=== PATIENT | male | born 1955 | race Caucasian/White ===

== ENCOUNTER 2019-01-24 07:34 | Outpatient (CLI) | payer OTHER, SELFPAY ==
[2019-01-24 08:30] LABS: Abs Immature Grans 0.09 k/cumm (0.0-0.09); Absolute Basophil Count 0.01 k/cumm (0.0-0.2); Absolute Eosinophil Count 0.16 k/cumm (0.0-0.7); Absolute Lymphocyte Count 1.08 k/cumm (1.2-3.4); Absolute Monocyte Count 0.54 k/cumm (0.11-0.7); Absolute Neutrophil Count 7.47 k/cumm (1.2-6.7); Basophils % 0.1; Eosinophils % 1.7; HCT 37.6 % (40.0-50.0); HGB 12.3 g/dL (13.5-17.5); Lymphocytes % 11.6; Mean Corp. HGB Concentration 32.7 g/dL (32.0-36.0); Mean Corpuscular Hemoglobin 26.9 pg (27.0-33.0); Mean Corpuscular Volume 82.1 fL (80-95); Mean Platelet Volume 9.1 fL (8.0-11.0); Monocytes % 5.8; Neutrophils % 79.8; Platelet Count 171 x1000/uL (130-400); RBC 4.58 m/cumm (4.50-6.00); RBC Distribution Width 16.3 % (11.8-14.1); White Blood Cell Count 9.35 k/cumm (4.4-10.8)
[2019-01-24 08:43] LABS: ALT 17 U/L (16-63); AST 9 U/L (15-37); Albumin 3.4 g/dL (3.4-5.0); Alkaline Phosphatase 91 U/L (46-116); Anion Gap 8.6 mmol/L (3-11); BUN 19 mg/dL (7-18); Bilirubin, Total 1.2 mg/dL (0.2-1.0); CO2 28.4 mmol/L (21.0-32.0); CREATININE 1.24 mg/dL (0.70-1.30); Calcium 9.2 mg/dL (8.5-10.1); Chloride 104 mmol/L (98-107); Estimated GFR 59.07 (mL/min/1.73m2); Glucose 149 mg/dL (70-100); Sodium 141 mmol/L (136-145); Total Protein 6.6 g/dL (6.4-8.2)
== END 2019-01-24 07:54 ==
PROVIDERS: PCP Nurse Practitioner; Visit Provider Internal Medicine Hematology & Oncology
DX: C15.5 Malignant neoplasm of lower third of esophagus (principal)
CPT/HCPCS: 36415; 80053; 85025

== ENCOUNTER 2019-01-30 11:32 | Outpatient (CLI) | payer OTHER, SELFPAY ==
[2019-01-30 11:53] LABS: Abs Immature Grans 0.09 k/cumm (0.0-0.09); Absolute Basophil Count 0.02 k/cumm (0.0-0.2); Absolute Lymphocyte Count 0.42 k/cumm (1.2-3.4); Absolute Monocyte Count 0.45 k/cumm (0.11-0.7); Absolute Neutrophil Count 6.96 k/cumm (1.2-6.7); Basophils % 0.2; Eosinophils % 1.2; HCT 37.5 % (40.0-50.0); HGB 12.5 g/dL (13.5-17.5); Immature Grans % 1.1; Lymphocytes % 5.2; Mean Corp. HGB Concentration 33.3 g/dL (32.0-36.0); Mean Corpuscular Hemoglobin 27.1 pg (27.0-33.0); Mean Corpuscular Volume 81.3 fL (80-95); Monocytes % 5.6; Neutrophils % 86.7; Platelet Count 169 x1000/uL (130-400); RBC 4.61 m/cumm (4.50-6.00); RBC Distribution Width 16.8 % (11.8-14.1); White Blood Cell Count 8.04 k/cumm (4.4-10.8)
[2019-01-30 12:07] LABS: ALT 15 U/L (16-63); AST 8 U/L (15-37); Albumin 3.4 g/dL (3.4-5.0); Alkaline Phosphatase 81 U/L (46-116); Anion Gap 9.9 mmol/L (3-11); BUN 23 mg/dL (7-18); Bilirubin, Total 2.5 mg/dL (0.2-1.0); CO2 27.1 mmol/L (21.0-32.0); CREATININE 1.35 mg/dL (0.70-1.30); Chloride 101 mmol/L (98-107); Estimated GFR 53.55 (mL/min/1.73m2); Glucose 183 mg/dL (70-100); Potassium 4.5 mmol/L (3.5-5.1); Sodium 138 mmol/L (136-145); Total Protein 6.5 g/dL (6.4-8.2)
== END 2019-01-30 11:52 ==
PROVIDERS: PCP Nurse Practitioner; Visit Provider Internal Medicine Hematology & Oncology
DX: C15.5 Malignant neoplasm of lower third of esophagus (principal)
CPT/HCPCS: 36415; 80053; 85025

== ENCOUNTER 2019-01-31 01:46 | Outpatient (CLI) | payer OTHER, SELFPAY ==
[2019-01-31 12:03] LABS: Bilirubin, Total 1.8 mg/dL (0.2-1.0)
[2019-01-31 13:30] LABS: Bilirubin, Direct 0.46 mg/dL (0.00-0.20)
== END 2019-01-31 02:06 ==
LOC: LOS 01:46 → LBN 11:24
PROVIDERS: PCP Nurse Practitioner; Visit Provider Registered Nurse Oncology
DX: C15.5 Malignant neoplasm of lower third of esophagus (principal); E86.0 Dehydration
CPT/HCPCS: 82247; 82248

== ENCOUNTER 2019-02-06 07:34 | Outpatient (CLI) | payer OTHER, SELFPAY ==
[2019-02-06 08:51] LABS: Abs Immature Grans 0.04 k/cumm (0.0-0.09); Absolute Basophil Count 0.01 k/cumm (0.0-0.2); Absolute Eosinophil Count 0.07 k/cumm (0.0-0.7); Absolute Lymphocyte Count 0.24 k/cumm (1.2-3.4); Absolute Monocyte Count 0.32 k/cumm (0.11-0.7); Absolute Neutrophil Count 4.62 k/cumm (1.2-6.7); Basophils % 0.2; Eosinophils % 1.3; HCT 36.9 % (40.0-50.0); HGB 12.3 g/dL (13.5-17.5); Immature Grans % 0.8; Lymphocytes % 4.5; Mean Corp. HGB Concentration 33.3 g/dL (32.0-36.0); Mean Corpuscular Hemoglobin 27.4 pg (27.0-33.0); Mean Corpuscular Volume 82.2 fL (80-95); Mean Platelet Volume 9.5 fL (8.0-11.0); Neutrophils % 87.2; Platelet Count 100 x1000/uL (130-400); RBC 4.49 m/cumm (4.50-6.00); RBC Distribution Width 17.9 % (11.8-14.1)
[2019-02-06 09:03] LABS: ALT 20 U/L (16-63); AST 11 U/L (15-37); Albumin 3.5 g/dL (3.4-5.0); Alkaline Phosphatase 75 U/L (46-116); Anion Gap 8.4 mmol/L (3-11); BUN 21 mg/dL (7-18); Bilirubin, Total 1.6 mg/dL (0.2-1.0); CO2 27.6 mmol/L (21.0-32.0); CREATININE 1.21 mg/dL (0.70-1.30); Calcium 9.3 mg/dL (8.5-10.1); Chloride 101 mmol/L (98-107); Glucose 205 mg/dL (70-100); Potassium 4.5 mmol/L (3.5-5.1); Sodium 137 mmol/L (136-145); Total Protein 6.3 g/dL (6.4-8.2)
== END 2019-02-06 07:54 ==
PROVIDERS: PCP Nurse Practitioner; Visit Provider Internal Medicine Hematology & Oncology
DX: C15.5 Malignant neoplasm of lower third of esophagus (principal)
CPT/HCPCS: 36415; 80053; 85025

== ENCOUNTER 2019-02-14 06:34 | Outpatient (CLI) | payer OTHER, SELFPAY ==
[2019-02-14 09:36] LABS: Abs Immature Grans 0.05 k/cumm (0.0-0.09); Absolute Eosinophil Count 0.02 k/cumm (0.0-0.7); Absolute Lymphocyte Count 0.17 k/cumm (1.2-3.4); Absolute Monocyte Count 0.21 k/cumm (0.11-0.7); Absolute Neutrophil Count 2.36 k/cumm (1.2-6.7); Eosinophils % 0.7; HCT 31.2 % (40.0-50.0); HGB 10.5 g/dL (13.5-17.5); Immature Grans % 1.8; Mean Corp. HGB Concentration 33.7 g/dL (32.0-36.0); Mean Corpuscular Hemoglobin 27.8 pg (27.0-33.0); Mean Corpuscular Volume 82.5 fL (80-95); Mean Platelet Volume 9.1 fL (8.0-11.0); Monocytes % 7.5; RBC 3.78 m/cumm (4.50-6.00); RBC Distribution Width 18.7 % (11.8-14.1); White Blood Cell Count 2.81 k/cumm (4.4-10.8)
[2019-02-14 09:49] LABS: ALT 23 U/L (16-63); AST 11 U/L (15-37); Albumin 3.3 g/dL (3.4-5.0); Alkaline Phosphatase 81 U/L (46-116); Anion Gap 11.8 mmol/L (3-11); BUN 14 mg/dL (7-18); Bilirubin, Total 1.9 mg/dL (0.2-1.0); CO2 25.2 mmol/L (21.0-32.0); CREATININE 1.18 mg/dL (0.70-1.30); Calcium 8.3 mg/dL (8.5-10.1); Chloride 104 mmol/L (98-107); Glucose 196 mg/dL (70-100); Potassium 3.5 mmol/L (3.5-5.1); Sodium 141 mmol/L (136-145); Total Protein 5.9 g/dL (6.4-8.2)
[2019-02-14 09:58] LABS: Platelet Count 56 x1000/uL (130-400); Polychromasia Present
== END 2019-02-14 06:54 ==
PROVIDERS: PCP Nurse Practitioner; Visit Provider Internal Medicine Hematology & Oncology
DX: C15.5 Malignant neoplasm of lower third of esophagus (principal)
CPT/HCPCS: 36415; 80053; 85025

== ENCOUNTER 2019-02-18 06:55 | Outpatient (CLI) | payer OTHER, SELFPAY ==
[2019-02-18 08:49] LABS: Abs Immature Grans 0.02 k/cumm (0.0-0.09); Absolute Basophil Count 0.01 k/cumm (0.0-0.2); Absolute Eosinophil Count 0.03 k/cumm (0.0-0.7); Absolute Lymphocyte Count 0.12 k/cumm (1.2-3.4); Absolute Monocyte Count 0.34 k/cumm (0.11-0.7); Absolute Neutrophil Count 3.49 k/cumm (1.2-6.7); Basophils % 0.2; Eosinophils % 0.7; HCT 29.8 % (40.0-50.0); HGB 9.7 g/dL (13.5-17.5); Immature Grans % 0.5; Mean Corp. HGB Concentration 32.6 g/dL (32.0-36.0); Mean Corpuscular Hemoglobin 27.6 pg (27.0-33.0); Mean Corpuscular Volume 84.9 fL (80-95); Mean Platelet Volume 9.4 fL (8.0-11.0); Monocytes % 8.5; Neutrophils % 87.1; RBC 3.51 m/cumm (4.50-6.00); White Blood Cell Count 4.01 k/cumm (4.4-10.8)
[2019-02-18 09:02] LABS: Anisocytosis 2+; Diff Comment RBC Morph Reviewed; Microcytosis 2+; Platelet Count 53 x1000/uL (130-400); Poikilocytes 1+; Polychromasia Present
[2019-02-18 09:04] LABS: ALT 18 U/L (16-63); AST 13 U/L (15-37); Albumin 3.1 g/dL (3.4-5.0); Alkaline Phosphatase 86 U/L (46-116); BUN 12 mg/dL (7-18); Bilirubin, Total 1.5 mg/dL (0.2-1.0); CREATININE 0.89 mg/dL (0.70-1.30); Calcium 8.6 mg/dL (8.5-10.1); Chloride 107 mmol/L (98-107); Glucose 204 mg/dL (70-100); Potassium 4.4 mmol/L (3.5-5.1); Sodium 141 mmol/L (136-145); Total Protein 5.7 g/dL (6.4-8.2)
== END 2019-02-18 07:15 ==
PROVIDERS: PCP Nurse Practitioner; Visit Provider Internal Medicine Hematology & Oncology
DX: C15.5 Malignant neoplasm of lower third of esophagus (principal)
CPT/HCPCS: 36415; 80053; 85025

== ENCOUNTER 2019-02-21 09:05 | Outpatient (CLI) | payer OTHER, SELFPAY ==
[2019-02-21 09:24] LABS: Abs Immature Grans 0.01 k/cumm (0.0-0.09); Absolute Basophil Count 0.01 k/cumm (0.0-0.2); Absolute Eosinophil Count 0.03 k/cumm (0.0-0.7); Absolute Lymphocyte Count 0.12 k/cumm (1.2-3.4); Absolute Monocyte Count 0.21 k/cumm (0.11-0.7); Absolute Neutrophil Count 2.57 k/cumm (1.2-6.7); Basophils % 0.3; HCT 29.4 % (40.0-50.0); HGB 9.5 g/dL (13.5-17.5); Immature Grans % 0.3; Lymphocytes % 4.1; Mean Corp. HGB Concentration 32.3 g/dL (32.0-36.0); Mean Corpuscular Hemoglobin 27.6 pg (27.0-33.0); Mean Corpuscular Volume 85.5 fL (80-95); Mean Platelet Volume 8.9 fL (8.0-11.0); Monocytes % 7.1; Neutrophils % 87.2; RBC 3.44 m/cumm (4.50-6.00); RBC Distribution Width 19.8 % (11.8-14.1); White Blood Cell Count 2.95 k/cumm (4.4-10.8)
[2019-02-21 09:33] LABS: ALT 17 U/L (16-63); AST 10 U/L (15-37); Alkaline Phosphatase 102 U/L (46-116); Anion Gap 9.3 mmol/L (3-11); BUN 14 mg/dL (7-18); Bilirubin, Total 1.4 mg/dL (0.2-1.0); CO2 25.7 mmol/L (21.0-32.0); CREATININE 1.12 mg/dL (0.70-1.30); Calcium 8.3 mg/dL (8.5-10.1); Chloride 105 mmol/L (98-107); Glucose 253 mg/dL (70-100); Potassium 4.3 mmol/L (3.5-5.1); Sodium 140 mmol/L (136-145); Total Protein 5.7 g/dL (6.4-8.2)
[2019-02-21 09:59] LABS: Anisocytosis 2+; Diff Comment RBC Morph Reviewed; Platelet Count 39 x1000/uL (130-400); Poikilocytes 1+; Polychromasia Present
== END 2019-02-21 09:25 ==
PROVIDERS: PCP Nurse Practitioner; Visit Provider Internal Medicine Hematology & Oncology
DX: C15.5 Malignant neoplasm of lower third of esophagus (principal)
CPT/HCPCS: 36415; 80053; 85025

== ENCOUNTER 2019-02-25 06:08 | Outpatient (CLI) | payer OTHER, SELFPAY ==
[2019-02-25 09:14] LABS: Abs Immature Grans 0.01 k/cumm (0.0-0.09); Absolute Basophil Count 0.01 k/cumm (0.0-0.2); Absolute Eosinophil Count 0.03 k/cumm (0.0-0.7); Absolute Lymphocyte Count 0.11 k/cumm (1.2-3.4); Absolute Neutrophil Count 3.32 k/cumm (1.2-6.7); Basophils % 0.3; Eosinophils % 0.8; HCT 32.2 % (40.0-50.0); HGB 10.5 g/dL (13.5-17.5); Immature Grans % 0.3; Lymphocytes % 2.9; Mean Corp. HGB Concentration 32.6 g/dL (32.0-36.0); Mean Corpuscular Hemoglobin 28.3 pg (27.0-33.0); Mean Corpuscular Volume 86.8 fL (80-95); Mean Platelet Volume 8.8 fL (8.0-11.0); Monocytes % 7.9; Neutrophils % 87.8; RBC 3.71 m/cumm (4.50-6.00); RBC Distribution Width 20.7 % (11.8-14.1); White Blood Cell Count 3.78 k/cumm (4.4-10.8)
[2019-02-25 09:29] LABS: Anisocytosis 2+; Diff Comment RBC Morph Reviewed; Platelet Count 52 x1000/uL (130-400); Poikilocytes 1+; Polychromasia Present
[2019-02-25 09:30] LABS: ALT 20 U/L (16-63); AST 15 U/L (15-37); Albumin 3.4 g/dL (3.4-5.0); Alkaline Phosphatase 84 U/L (46-116); Anion Gap 9.1 mmol/L (3-11); BUN 10 mg/dL (7-18); Bilirubin, Total 1.8 mg/dL (0.2-1.0); CO2 27.9 mmol/L (21.0-32.0); CREATININE 1.09 mg/dL (0.70-1.30); Calcium 9.3 mg/dL (8.5-10.1); Chloride 103 mmol/L (98-107); Glucose 217 mg/dL (70-100); Potassium 4.8 mmol/L (3.5-5.1); Sodium 140 mmol/L (136-145); Total Protein 6.2 g/dL (6.4-8.2)
== END 2019-02-25 06:28 ==
LOC: LBN 06:09 → LBO 08:50
PROVIDERS: PCP Nurse Practitioner; Visit Provider Internal Medicine Hematology & Oncology
DX: C15.5 Malignant neoplasm of lower third of esophagus (principal)
CPT/HCPCS: 36415; 80053; 85025

== ENCOUNTER 2019-02-28 06:28 | Outpatient (CLI) | payer OTHER, SELFPAY ==
[2019-02-28 11:09] LABS: Abs Immature Grans 0.02 k/cumm (0.0-0.09); Absolute Eosinophil Count 0.05 k/cumm (0.0-0.7); Absolute Lymphocyte Count 0.13 k/cumm (1.2-3.4); Absolute Monocyte Count 0.43 k/cumm (0.11-0.7); Eosinophils % 1.3; HCT 31.5 % (40.0-50.0); HGB 10.2 g/dL (13.5-17.5); Immature Grans % 0.5; Lymphocytes % 3.3; Mean Corp. HGB Concentration 32.4 g/dL (32.0-36.0); Mean Corpuscular Hemoglobin 28.3 pg (27.0-33.0); Mean Corpuscular Volume 87.5 fL (80-95); Mean Platelet Volume 8.8 fL (8.0-11.0); Monocytes % 10.9; RBC Distribution Width 21.7 % (11.8-14.1); White Blood Cell Count 3.93 k/cumm (4.4-10.8)
[2019-02-28 11:25] LABS: Anisocytosis 2+; Diff Comment Diff Reviewed; Platelet Count 59 x1000/uL (130-400)
[2019-02-28 11:26] LABS: Macrocytosis 1+; Microcytosis 1+; Poikilocytes 1+; Polychromasia Present
[2019-02-28 11:48] LABS: ALT 15 U/L (16-63); AST 9 U/L (15-37); Albumin 3.3 g/dL (3.4-5.0); Alkaline Phosphatase 80 U/L (46-116); Anion Gap 6.7 mmol/L (3-11); BUN 13 mg/dL (7-18); CO2 28.3 mmol/L (21.0-32.0); CREATININE 1.06 mg/dL (0.70-1.30); Calcium 8.9 mg/dL (8.5-10.1); Chloride 105 mmol/L (98-107); Glucose 182 mg/dL (74-106); Sodium 140 mmol/L (136-145); Total Protein 6.1 g/dL (6.4-8.2)
== END 2019-02-28 06:48 ==
LOC: LBN 06:30 → LBO 06:55
PROVIDERS: PCP Nurse Practitioner; Visit Provider Internal Medicine Hematology & Oncology
DX: C15.5 Malignant neoplasm of lower third of esophagus (principal)
CPT/HCPCS: 36415; 80053; 85025

== ENCOUNTER 2019-03-06 10:56 | Outpatient (REF) | payer OTHER, SELFPAY ==
[2019-03-06 11:07] LABS: RBC Distribution Width 21.6 % (11.8-14.1)
[2019-03-06 11:19] LABS: Abs Immature Grans 0.02 k/cumm (0.0-0.09); Absolute Lymphocyte Count 0.06 k/cumm (1.2-3.4); Absolute Monocyte Count 0.27 k/cumm (0.11-0.7); Absolute Neutrophil Count 2.02 k/cumm (1.2-6.7); HCT 30.2 % (40.0-50.0); HGB 9.8 g/dL (13.5-17.5); Immature Grans % 0.8; Lymphocytes % 2.5; Mean Corp. HGB Concentration 32.5 g/dL (32.0-36.0); Mean Corpuscular Hemoglobin 28.7 pg (27.0-33.0); Mean Corpuscular Volume 88.3 fL (80-95); Monocytes % 11.4; Neutrophils % 85.3; RBC 3.42 m/cumm (4.50-6.00); White Blood Cell Count 2.37 k/cumm (4.4-10.8)
[2019-03-06 11:22] LABS: ALT 10 U/L (16-63); AST 10 U/L (15-37); Albumin 3.3 g/dL (3.4-5.0); Alkaline Phosphatase 81 U/L (46-116); Anion Gap 10.5 mmol/L (3-11); BUN 18 mg/dL (7-18); Bilirubin, Total 1.8 mg/dL (0.2-1.0); CO2 25.5 mmol/L (21.0-32.0); CREATININE 1.13 mg/dL (0.70-1.30); Calcium 8.9 mg/dL (8.5-10.1); Chloride 103 mmol/L (98-107); Glucose 304 mg/dL (74-106); Potassium 4.4 mmol/L (3.5-5.1); Sodium 139 mmol/L (136-145)
[2019-03-06 11:32] LABS: Anisocytosis 1+; Diff Comment RBC Morph Reviewed; Hypochromasia 1+; Platelet Count 49 x1000/uL (130-400); Polychromasia Present
[2019-03-06 11:33] LABS: Poikilocytes 1+
== END 2019-03-06 11:16 ==
LOC: LBN 10:56
PROVIDERS: PCP Nurse Practitioner; Visit Provider Internal Medicine Hematology & Oncology
DX: C15.5 Malignant neoplasm of lower third of esophagus (principal)
CPT/HCPCS: 80053; 85025

== ENCOUNTER 2019-03-15 07:01 | Outpatient (CLI) | payer OTHER, SELFPAY ==
[2019-03-15 12:05] LABS: Abs Immature Grans 0.02 k/cumm (0.0-0.09); Absolute Basophil Count 0.01 k/cumm (0.0-0.2); Absolute Eosinophil Count 0.01 k/cumm (0.0-0.7); Absolute Lymphocyte Count 0.13 k/cumm (1.2-3.4); Absolute Monocyte Count 0.31 k/cumm (0.11-0.7); Absolute Neutrophil Count 3.08 k/cumm (1.2-6.7); Basophils % 0.3; Eosinophils % 0.3; HCT 32.5 % (40.0-50.0); HGB 10.5 g/dL (13.5-17.5); Immature Grans % 0.6; Lymphocytes % 3.7; Mean Corp. HGB Concentration 32.3 g/dL (32.0-36.0); Mean Corpuscular Hemoglobin 28.7 pg (27.0-33.0); Mean Corpuscular Volume 88.8 fL (80-95); Mean Platelet Volume 9.2 fL (8.0-11.0); Monocytes % 8.7; Neutrophils % 86.4; RBC 3.66 m/cumm (4.50-6.00); RBC Distribution Width 20.4 % (11.8-14.1); White Blood Cell Count 3.56 k/cumm (4.4-10.8)
[2019-03-15 12:14] LABS: ALT 14 U/L (16-63); AST 12 U/L (15-37); Albumin 3.4 g/dL (3.4-5.0); Alkaline Phosphatase 101 U/L (46-116); Anion Gap 8.5 mmol/L (3-11); BUN 18 mg/dL (7-18); CO2 27.5 mmol/L (21.0-32.0); Calcium 9.3 mg/dL (8.5-10.1); Chloride 104 mmol/L (98-107); Glucose 102 mg/dL (74-106); Potassium 4.6 mmol/L (3.5-5.1); Sodium 140 mmol/L (136-145); Total Protein 6.5 g/dL (6.4-8.2)
[2019-03-15 12:19] LABS: Anisocytosis 2+; Diff Comment RBC Morph Reviewed; Platelet Count 76 x1000/uL (130-400)
[2019-03-15 12:20] LABS: Microcytosis 1+; Ovalocytes 2+; Poikilocytes 2+; Polychromasia Present
== END 2019-03-15 07:21 ==
PROVIDERS: PCP Nurse Practitioner; Visit Provider Internal Medicine Hematology & Oncology
DX: C15.5 Malignant neoplasm of lower third of esophagus (principal)
CPT/HCPCS: 36415; 80053; 85025